=== PATIENT | female | born 1955 | race Caucasian/White ===

== ENCOUNTER 2016-08-19 13:40 | Inpatient (IN) ==
[2016-08-19 17:35] LABS: Basophils # 0.1 K/mcL (0.0-0.2); Basophils % 0.7 %; Eosinophils # 0.1 K/mcL (0.0-0.6); Eosinophils % 1.3 %; Hematocrit 40.9 % (35.3-44.9); Hemoglobin 13.8 g/dL (11.5-15.4); Immature Granulocytes % 0.3 % (0-4); Lymphocytes # 2.7 K/mcL (0.6-4.6); Lymphocytes % 35.3 %; Mean Corpuscular HGB Conc 33.7 g/dL (31.6-35.5); Mean Corpuscular Hemoglobin 29.3 pg (28.0-33.3); Mean Corpuscular Volume 86.8 fL (83.0-100.0); Mean Platelet Volume 10.3 fL (9.4-12.4); Monocytes # 0.5 K/mcL (0.0-1.3); Monocytes % 6.5 %; Neutrophils # 4.2 K/mcL (1.6-8.9); Platelet Count 270 K/mcL (140-400); Red Blood Count 4.71 M/mcL (3.82-4.97); Red Cell Distribution Width 11.7 % (11.5-14.5); Segmented Neutrophils % 55.9 %
[2016-08-19 17:49] LABS: Alanine Aminotransferase 25 Units/L (0-55); Albumin 3.8 g/dL (3.5-5.0); Alkaline Phosphatase 79 Units/L (38-126); Amylase 72 Units/L (25-125); Aspartate Amino Transferase 19 Units/L (5-34); BUN/Creatinine Ratio 18 (6-26); Bilirubin,Direct 0.1 mg/dL (0.0-0.5); Bilirubin,Indirect 0.3 mg/dL (0.0-1.2); Bilirubin,Total 0.4 mg/dL (0.2-1.2); Blood Urea Nitrogen 19 mg/dL (7-20); Calcium 9.9 mg/dL (8.6-10.8); Carbon Dioxide 30 mEq/L (19-29); Chloride 106 mEq/L (98-109); Globulin 3.7 g/dL (2.4-3.5); Glucose 122 mg/dL (70-99); Lipase 92 Units/L (8-78); Osmolality,Calculated 296 (280-300); Potassium 4.8 mEq/L (3.5-4.5); Sodium 141 mEq/L (136-145); Total Protein 7.5 g/dL (6.0-8.3); eGFR For African Americans > 60 (> 60); eGFR For Non-African Americans 53 (> 60)
[2016-08-19 18:02] LABS: Bilirubin,Urine Small (Negative); Blood,Urine Negative (Negative); Clarity,Urine Clear (Clear); Color,Urine Yellow (Yellow); Glucose,Urine (UA) Normal (Normal); Ketones,Urine Negative (Negative); Leukocyte Esterase,Urine Negative (Negative); Nitrite,Urine Negative (Negative); PH,Urine 5.5 pH Units (5.0-8.0); Protein,Urine Negative (Neg-Trace); Specific Gravity,Urine 1.027 (1.010-1.025); Urobilinogen,Urine Normal (Normal)
--- NOTE | 2016-08-19 18:22 | Emergency Department Note ---
START Narrative - START START: I examined this patient and my medical decision-making was reviewed with the METALWORKING INSTRUCTOR/PA/Advanced Practice Nurse/Resident Physician. I agree with the documented findings, disposition and treatment plan as described except to the extent set forth below. ED attending note: I saw this Patient with the emergency medicine resident Dr. Penny. Please see a copy of his note for details of the H&P, evaluation, management and disposition of this emergency Department patient. We independently had [id number] contact with the patient. Briefly: 61-year-old female with epigastric right upper quadrant pain going through to her back. History of chronic pain syndrome on a fentanyl patch from prior trauma she has plates and screws in her neck. Patient has multiple quadrant tenderness with voluntary guarding but no rebound. Lab work shows a normal white count and chemistry, lipase is elevated at 95. Abdominal pelvic CT scan pending. Disposition pending
[2016-08-19] MEDS ORDERED: Ondansetron 4 MG/2 ML VIAL IVP ONE ×2 (18:23→20:51)
--- NOTE | 2016-08-19 18:55 | Emergency Department Note ---
Disposition Clinical Impression: Intractable right upper quadrant abdominal pain Acute pancreatitis Qualifiers: Pancreatitis type: unspecified pancreatitis type Acute pancreatitis complication: unspecified Qualified Code(s): K85.90 - Acute pancreatitis without necrosis or infection, unspecified Disposition: Admitted As Inpatient Condition: Fair Referrals: Traci Daniels MD [Primary Care Provider] - Forms: Work/School Release, ED Satisfaction Letter Time of Disposition: 21:19 Abdominal Pain HPI - General Chief Complaint: ED Abdominal Pain Stated Complaint: abd pain Time Seen by Provider: 08/19/16 17:21 Source: patient Mode of arrival: ambulatory Limitations: no limitations Nursing Notes Reviewed: Yes Vital Signs Reviewed: Yes - History of Present Illness HPI Narrative: Patient is a 61-year-old female presents with abdominal pain 1 day in the right upper quadrant that woke her out of sleep at 7:30 AM 1 day ago sharp constant nonradiating nothing makes it better and nothing makes it worse. Patient states pain has decreased to 6/10 but has not gone away. Patient complains of loose mucousy red stools that started 3 days ago. Patient states this never happened before. Patient does not have a history of cancer. Patient has a family history of breast cancer and other cancers. Pain Scale: 7 - Related Data Home Medications Medication Instructions Recorded Confirmed Acyclovir [Zovirax] 400 mg PO BID 05/16/16 05/16/16 Atorvastatin Calcium [Lipitor] 20 mg PO DAILY 05/16/16 05/16/16 BuPROPion XL (24 HR) [Wellbutrin 150 mg PO DAILY 05/16/16 05/16/16 Xl] Buspirone HCl [Buspar] 20 mg PO BID 05/16/16 05/16/16 Cholecalciferol (D-3) [Vitamin D] 2,000 unit PO DAILY 05/16/16 05/16/16 Escitalopram [Lexapro] 20 mg PO DAILY 05/16/16 05/16/16 Fentanyl [Duragesic] 25 mcg TD Q72H 05/16/16 05/16/16 Glimepiride [Amaryl] 1 mg PO QAM PRN 05/16/16 05/16/16 Levothyroxine [Synthroid] 50 mcg PO DAILY 05/16/16 05/16/16 Metformin [Glucophage] 500 mg PO BID 05/16/16 05/16/16 Metoprolol XL (24 HR) Succ [Toprol 25 mg PO DAILY 05/16/16 05/16/16 Xl] Mometasone/Formoterol [Dulera 200 2 puff IH BID 05/16/16 05/16/16 Mcg/5 Mcg Inhaler] Montelukast [Singulair] 10 mg PO DAILY 05/16/16 05/16/16 Morphine Immed Rel [Morphine 15 mg PO BID 05/16/16 05/16/16 Sulfate] Pantoprazole Sodium [Protonix] 40 mg PO DAILY 05/16/16 05/16/16 Aspirin/Calcium Carbonate/Mag 325 mg PO DAILY 08/19/16 08/19/16 [Aspirin Buffered 325 mg Tab] Allergies Allergy/AdvReac Type Severity Reaction Status Date / Time hydrocodone [From Lortab] Allergy Rash Verified 05/16/16 10:47 Oxycodone [From Percocet] Allergy Chest Pain Verified 05/16/16 10:47 povidone-iodine Allergy Rash Verified 05/16/16 10:47 [From Betadine] soap [From Betadine] Allergy Rash Verified 05/16/16 10:47 ivp dye Allergy Hives Uncoded 05/16/16 10:47 All systems ED: reviewed and negative except as stated. Constitutional: Denies: fever, chills Eyes: Denies: eye pain, eye discharge ENT ED: Denies: ear pain, throat pain, congestion Cardiovascular: Denies: chest pain, palpitations Respiratory: Denies: cough Gastrointestinal: Reports: abdominal pain, nausea, diarrhea. Denies: vomiting Genitourinary: Denies: urgency, dysuria Musculoskeletal: Reports: back pain Psychiatric: Denies: anxiety Endocrine: Denies: fatigue Abdominal Pain PMH - Past Medical History Medical history: Reports: arthritis, asthma, diabetes, fibromyalgia, GERD, hyperlipidemia, thyroid disease, other Female Surgical History: Reports: appendectomy, hysterectomy, orthopedic, other , other Psychiatric history: Reports: anxiety, depression - Social History Smoking status: Never smoker Alcohol use: Reports: none Drug use: Reports: none Physical Exam - General Limitations: no limitations General appearance: alert - Head Head exam: atraumatic, normocephalic, normal inspection - Eye Eye exam: Present: normal appearance, PERRL, EOMI - ENT ENT exam: normal exam, mucous membranes moist - Neck Neck exam: Present: normal inspection, full ROM, trachea midline. Absent: lymphadenopathy - Chest Chest inspection: Present: normal inspection, symmetric chest wall rise. Absent : tenderness - Respiratory Respiratory exam: Present: normal lung sounds bilaterally, respiratory distress. Absent: wheezes, accessory muscle use - Cardiovascular Cardiovascular exam: Present: regular rate, normal rhythm - Abdominal Exam Abdominal exam: Present: soft, tenderness, normal bowel sounds. Absent: distention, guarding, rebound, rigidity Abdominal tenderness: Present: RUQ, moderate - Extremities Exam Extremities exam: Present: normal inspection, full ROM, normal capillary refill. Absent: tenderness, pedal edema, joint swelling Course - Reevaluation(s) Reevaluation #1: Patient is 61-year-old female who presents with sudden onset of abdominal pain 1 day 9 out of 10 with reduction to 6 out of 10 without assistance. Patient has right upper quadrant tender mass is felt on palpation. Recommend CT abdomen and pelvis noncontrast secondary to allergic reaction to previous contrasted heart catheterization. Patient started IV hydration therapy and pain control for possible acute cholecystitis, choledocholithiasis SBO, pancreatitis, neoplasm, volvulus Time: 18:13 Reevaluation #2: Rechecked patient, patient states that her nausea is controlled but her pain is currently a 5 out of 10. A[address] results Time: 19:04 Reevaluation #3: CT scan shows a mild focal pancreatitis. I discussed admission to with the patient for IV hydration and Pain control. Patient accepts and understands this treatment and plan Time: 20:15 - Consultations Consultation #1: Dr. Slater accepted patient for admission Time: 21:16 Vital Signs Temperature 98.3 F 08/19/16 14:29 Pulse Rate 72 08/19/16 14:29 Respiratory Rate 22 08/19/16 14:29 Blood Pressure 102/64 08/19/16 14:29 O2 Sat by Pulse Oximetry 96 08/19/16 14:29 Temperature 98.3 F 08/19/16 14:29 Pulse Rate 80 08/19/16 18:28 Respiratory Rate 16 08/19/16 17:32 Blood Pressure 132/88 08/19/16 18:28 O2 Sat by Pulse Oximetry 94 L 08/19/16 18:28 Oxygen Delivery Oxygen Delivery Room Air Abdominal Pain - MDM Narrative Medical decision making narrative: Patient is a 61-year-old female who presents with right upper quadrant pain one day that woke her from sleep. Patient has right upper quadrant tenderness and mass felt on examination. Patient's condition is worrisome for acute cholecystitis, choledocholithiasis, pancreatitis, abdominal neoplasm. She shows a hyperkalemia 4.8, elevated lipase at 92 for pancreatitis. Patient has a CT scan of abdomen and pelvis which shows: IMPRESSION: Per radiology Mild infiltration which could represent mild focal pancreatitis adjacent to the uncinate process interposed adjacent to the transverse duodenum. Moderate fatty infiltration of the liver. Patient was admitted hospital for inpatient therapy for IV hydration and pain control Acute mild focal Pancreatitis. Patient was accepted by Dr. Slater - Lab Data Lab results reviewed: Yes I reviewed the patient's lab results. Lab results narrative: Short CBC 08/19/16 Range/Units 17:22 WBC 7.6 (4.3-11.1) K/mcL Hgb 13.8 (11.5-15.4) g/dL Hct 40.9 (35.3-44.9) % Plt Count 270 (140-400) K/mcL Neutrophils # 4.2 (1.6-8.9) K/mcL BMP 08/19/16 Range/Units 17:22 Sodium 141 (136-145) mEq/L Potassium 4.8 H (3.5-4.5) mEq/L Chloride 106 (98-109) mEq/L Carbon Dioxide 30 H (19-29) mEq/L BUN 19 (7-20) mg/dL Creatinine 1.06 (0.57-1.11) mg/dL Glucose 122 H (70-99) mg/dL Calcium 9.9 (8.6-10.8) mg/dL Liver Function 08/19/16 Range/Units 17:22 Total Bilirubin 0.4 (0.2-1.2) mg/dL Direct Bilirubin 0.1 (0.0-0.5) mg/dL AST 19 (5-34) Units/L ALT 25 (0-55) Units/L Alkaline Phosphatase 79 (38-126) Units/L Albumin 3.8 (3.5-5.0) g/dL Urine 08/19/16 Range/Units 17:45 Urine Color Yellow (Yellow) Urine Clarity Clear (Clear) Urine pH 5.5 (5.0-8.0) pH Units Ur Specific [place] 1.027 H (1.010-1.025) Urine Protein Negative (Neg-Trace) mg/dL Urine Glucose (UA) Normal (Normal) mg/dL Result diagrams: 08/19/16 17:22 08/19/16 17:22 Lab Results 08/19/16 08/19/16 08/19/16 Range/Units 17:22 17:22 17:45 WBC 7.6 (4.3-11.1) K/mcL RBC 4.71 (3.82-4.97) M/mcL Hgb 13.8 (11.5-15.4) g/dL Hct 40.9 (35.3-44.9) % MCV 86.8 (83.0-100.0) fL MCH 29.3 (28.0-33.3) pg MCHC 33.7 (31.6-35.5) g/dL RDW 11.7 (11.5-14.5) % Plt Count 270 (140-400) K/mcL MPV 10.3 (9.4-12.4) fL Immature Gran % 0.3 (0-4) % Seg Neutrophils % 55.9 % Lymphocytes % 35.3 % Monocytes % 6.5 % Eosinophils % 1.3 % Basophils % 0.7 % Neutrophils # 4.2 (1.6-8.9) K/mcL Lymphocytes # 2.7 (0.6-4.6) K/mcL Monocytes # 0.5 (0.0-1.3) K/mcL Eosinophils # 0.1 (0.0-0.6) K/mcL Basophils # 0.1 (0.0-0.2) K/mcL Sodium 141 (136-145) mEq/L Potassium 4.8 H (3.5-4.5) mEq/L Chloride 106 (98-109) mEq/L Carbon Dioxide 30 H (19-29) mEq/L BUN 19 (7-20) mg/dL Creatinine 1.06 (0.57-1.11) mg/dL Est GFR ( Amer) > 60 (> 60) Est GFR (Non-Af Amer) 53 L (> 60) BUN/Creatinine Ratio 18 (6-26) Glucose 122 H (70-99) mg/dL Calculated Osmolality 296 (280-300) Calcium 9.9 (8.6-10.8) mg/dL Total Bilirubin 0.4 (0.2-1.2) mg/dL Direct Bilirubin 0.1 (0.0-0.5) mg/dL Indirect Bilirubin 0.3 (0.0-1.2) mg/dL AST 19 (5-34) Units/L ALT 25 (0-55) Units/L Alkaline Phosphatase 79 (38-126) Units/L Serum Total Protein 7.5 (6.0-8.3) g/dL Albumin 3.8 (3.5-5.0) g/dL Globulin 3.7 H (2.4-3.5) g/dL Albumin/Globulin Ratio 1.0 L (1.1-2.2) Amylase 72 (25-125) Units/L Lipase 92 H (8-78) Units/L Urine Color Yellow (Yellow) Urine Clarity Clear (Clear) Urine pH 5.5 (5.0-8.0) pH Units Ur Specific [place] 1.027 H (1.010-1.025) Urine Protein Negative (Neg-Trace) mg/dL Urine Glucose (UA) Normal (Normal) mg/dL Urine Ketones Negative (Negative) mg/dL Urine Blood Negative (Negative) Urine Nitrite Negative (Negative) Urine Bilirubin Small H (Negative) Urine Urobilinogen Normal (Normal) mg/dL Ur Leukocyte Esterase Negative (Negative) Ur Culture Indicated? NO (NO) - Radiology Data Radiology results reviewed: Yes I reviewed the patient's radiology results. Abdomen/Pelvis CT 08/19/16 18:19 IMPRESSION: Mild infiltration which could represent mild focal pancreatitis adjacent to the uncinate process interposed adjacent to the transverse duodenum. Moderate fatty infiltration of the liver. D/ / John Charles MD / John Charles MD Interpreting Provider: John Charles MD
[2016-08-19] MEDS ORDERED: 0.9 % Sodium Chloride 1,000 ML IVC ONE (19:04)
[2016-08-20] MEDS: *HR* Morphine 2 MG/ML SYRINGE IVP PRN ×5 (02:50→20:03)
[2016-08-20] MEDS: 0.9 % Sodium Chloride 1,000 ML IVC SCH ×4 (02:50→20:49)
[2016-08-20] MEDS ORDERED: Naloxone 0.4 MG/ML INJ IVP PRN (05:01)
[2016-08-20] MEDS ORDERED: Dextrose Gel 15 GM PO PRN ×2 (05:09)
[2016-08-20] MEDS ORDERED: D5% in Water 1,000 ML IV PRN (05:09)
[2016-08-20] MEDS ORDERED: *HR* Dextrose 50 % in Water (Syg) 50 ML SYRINGE IVP PRN (05:09)
[2016-08-20] MEDS: Insulin LISPRO 300 UNITS/3 ML VIAL SQ SCH ×3 (05:37→17:50)
[2016-08-20] MEDS: Pantoprazole 40 MG VIAL IVP SCH ×2 (05:55→07:56)
[2016-08-20] MEDS: *HR* Heparin 5,000 UNIT/ML VIAL SQ SCH ×3 (05:55→23:06)
[2016-08-20] MEDS: Ondansetron 4 MG/2 ML VIAL IVP PRN ×2 (05:56→15:53)
[2016-08-20] MEDS: *HR* FentaNYL PATCH 25 MCG PATCH TD SCH (05:56)
--- NOTE | 2016-08-20 06:00 | Internal Med History&Physical ---
Date of Encounter: 08/20/16 Time of Encounter: 05:30 Assessment and Plan (1) Acute pancreatitis Current visit: Yes Status: Acute 1. Will keep npo, continue IVF, IV pain medicine, and IV anti-emetics. 2. Will trend amylase and lipase. 3. Will order GB Ultrasound to evaluate for gallstone pancreatitis. 4. Diet order subject to clinical improvement and resolution of pancreatitis. Qualifiers: Pancreatitis type: biliary Acute pancreatitis complication: no infection or necrosis Qualified Code(s): K85.10 - Biliary acute pancreatitis without necrosis or infection (2) Hypothyroidism Current visit: Yes Status: Chronic 1. Resume home dose of Synthroid. 2. Outpatient follow up. Qualifiers: Hypothyroidism type: acquired Qualified Code(s): E03.9 - Hypothyroidism, unspecified (3) Type 2 diabetes mellitus Current visit: No Status: Chronic 1. Hold oral meds. 2. Will place on low scale SSI. 3. Monitor glucose and adjust insulin as necessary. Qualifiers: Diabetes mellitus complication status: without complication Diabetes mellitus regional intermodal truck driver insulin use: without regional intermodal truck driver use Qualified Code(s): E11.9 - Type 2 diabetes mellitus without complications (4) DVT prophylaxis Current visit: Yes Status: Acute 1. Heparin SQ. Internal Medicine - H&P: HPI Chief complaint: abdomninal pain Admitted From: Emergency Dept Plans for Post Hospital Care: Home History of present illness: Ms. Myrick is a 61 year old female who presented to the ER tonight with complaints of sharp epigastric and right upper quadrant abdominal pain radiating to her mid back and right scapula. Symptoms started about 24-48 hours ago. She developed pain was associated with nausea, vomiting, and some diarrhea. She has had no fevers. She has been unable to eat or drink due to pain and vomiting exacerbation. She has never had pain like this before. She has had some gallbladder problems in the past, but she denies any acute pain and /or symptoms such as above. Work-up in the ER revealed patient to have evidence of pancreatitis, and she was admitted to hospitalist service. Upon my assessment of the patient, she reiterates the above history. She still has some pain and nausea, but is better controlled with pain medication we administered. She does not drink any alcohol. She is diabetic and has high cholesterol. Furthermore, there is a strong family history of gallbladder disease. Past Med Surg Social Fam HX - Past Medical History Attestation: Yes The following information was validated with the patient. Source: patient, old records reviewed Medical history: arthritis, asthma, CVA, diabetes, fibromyalgia, GERD, hyperlipidemia, thyroid disease, TIA Psychiatric history: anxiety, depression - Past Surgical History Surgical History: appendectomy, hysterectomy - Social History Smoking Status: Never smoker Smokeless Tobacco Status: No Alcohol use: none Drug use: none Current living situation: Home Activity Level: Independent ambulation Recent Out of Country Travel Within the Last 8 Weeks: No - Family History Mother History Unknown: Yes Adopted: [place]: Catie Cole Age: 83 Family Member Ethnicity: Non- Living Status: Still Living Hx Family Cardiac Disorders: Yes (CHF, Takotsubo disease) Hx Family Respiratory Disorders: Yes (COPD, Asthma) Hx Family Cancer: Yes (Skin) Hx Family GI Disorders: Yes (GERD) Hx Family Genitourinary Disorders: Yes (Urinary incontinence) Hx Family Endocrine Disorder: No Hx Family Musculoskeletal Disorders: Yes (Osteo arthritis) Hx Family Neuromuscular Disorders: No Hx Family Neurologic Disorders: Yes (TIA) Hx Family HEENT Disorders: No Hx Family Autoimmune Disorders: No Hx Family Reproductive Disorders: No Hx Family Psychosocial Disorders: No Hx Family Medical Disorders: No Father History Unknown: Yes Adopted: [place]: Niall Sena Family Member Ethnicity: Non- Living Status: Age at : 70 Cause of : Metastatic cancer Hx Family Cardiac Disorders: No Hx Family Respiratory Disorders: No Hx Family Cancer: Yes Internal Medicine - H&P: Meds Acyclovir [Zovirax] 400 mg PO BID 05/16/16 [History] Atorvastatin Calcium [Lipitor] 20 mg PO DAILY 05/16/16 [History] BuPROPion XL (24 HR) [Wellbutrin Xl] 150 mg PO DAILY 05/16/16 [History] Buspirone HCl [Buspar] 20 mg PO BID 05/16/16 [History] Cholecalciferol (D-3) [Vitamin D] 2,000 unit PO DAILY 05/16/16 [History] Escitalopram [Lexapro] 20 mg PO DAILY 05/16/16 [History] Fentanyl [Duragesic] 25 mcg TD Q72H 05/16/16 [History] Glimepiride [Amaryl] 1 mg PO QAM PRN 05/16/16 [History] Levothyroxine [Synthroid] 50 mcg PO DAILY 05/16/16 [History] Metformin [Glucophage] 500 mg PO BID 05/16/16 [History] Metoprolol XL (24 HR) Succ [Toprol Xl] 25 mg PO DAILY 05/16/16 [History] Mometasone/Formoterol [Dulera 200 Mcg/5 Mcg Inhaler] 2 puff IH BID 05/16/16 [ History] Montelukast [Singulair] 10 mg PO DAILY 05/16/16 [History] Morphine Immed Rel [Morphine Sulfate] 15 mg PO BID PRN 05/16/16 [History] Pantoprazole Sodium [Protonix] 40 mg PO DAILY 05/16/16 [History] Aspirin/Calcium Carbonate/Mag [Aspirin Buffered 325 mg Tab] 325 mg PO DAILY [History] Allergies hydrocodone [From Lortab] Allergy (Verified 05/16/16 10:47) Rash Oxycodone [From Percocet] Allergy (Verified 05/16/16 10:47) Chest Pain povidone-iodine [From Betadine] Allergy (Verified 05/16/16 10:47) Rash soap [From Betadine] Allergy (Verified 05/16/16 10:47) Rash ivp dye Allergy (Uncoded 05/16/16 10:47) Hives - Constitutional Constitutional: no chills, no fever(s) - EENT Eyes: no blurry vision, no change in vision Ears: no ear pain Nose, mouth and throat: no nasal congestion, no sinus pain, no sinus pressure, no sore throat - Cardiovascular Cardiovascular ROS IM: no chest pain, no diaphoresis, no dyspnea, no dyspnea on exertion, no palpitations - Respiratory Respiratory: no cough, no dyspnea, no hemoptysis, no excessive phlegm production , no change in phlegm color - Gastrointestinal Gastrointestinal: abdominal pain, belching, diarrhea, dyspepsia, loose stools, nausea, vomiting, no heartburn, no hematemesis, no hematochezia - Genitourinary Genitourinary: no dysuria, no flank pain, no hematuria - Musculoskeletal Musculoskeletal ROS IM: back pain (chronic), no arthralgias - Integumentary Integumentary IM: no rash, no jaundice - Neurological Neurological ROS: no dizziness, no focal weakness, no frequent falls, no headache(s) - Psychiatric Psychiatric: anxiety, depression, no homicidal ideation, no suicidal ideation - Endocrine Endocrine IM: no cold intolerance, no heat intolerance, no polydipsia, no polyuria - Hematologic/Lymphatic Hematologic/Lymphatic: no lymphadenopathy - Allergic/Immunologic Allergic/Immunologic: GI upset with certain foods, no wheezing - Constitutional Vitals: Temp Pulse Resp BP Pulse Ox 98.0 F 62 12 107/64 96 08/20/16 03:26 08/20/16 03:26 08/20/16 03:26 08/20/16 03:08/20/16 03:26 General appearance: Present: cooperative, mild distress, A&O X 3, pleasant, answers questions appropriately - Head Head exam: Present: atraumatic, normal inspection - Expanded Head Exam Head exam expanded: Absent: abrasion, general tenderness - Eye Eye exam: Present: EOMI, normal appearance, PERRL. Absent: scleral icterus Pupils: Present: normal accommodation - ENT ENT exam: Present: mucous membranes dry, normal exam, normal oropharynx - Neck Neck exam general surgery: Present: full ROM, supple, trachea midline. Absent: tenderness, thyromegaly - Respiratory Respiratory exam: Present: CTAB. Absent: chest wall tenderness, rales, rhonchi , wheezes - Cardiovascular Cardiovascular exam: Present: RRR, +S1, +S2. Absent: diastolic murmur, systolic murmur - GI/Abdominal GI/Abdominal exam: Present: guarding, hypoactive bowel sounds, soft, tenderness (epigastric-->RUQ-->midback), no peritoneal signs. Absent: hepatomegaly, mass, rebound, splenomegaly - Extremities Exam Extremities exam: Present: full ROM, warm, radial pulses palpable and symetrical. Absent: calf tenderness, joint swelling - Back Exam Back exam: Present: normal inspection. Absent: CVA tenderness (L), CVA tenderness (R) - Neurological Exam Neurological exam: Present: alert, CN II-XII intact, oriented X3, no focal deficits, strengths equal and symetr throughout - Psychiatric Psychiatric exam: Present: normal affect, normal mood - Skin Skin exam: Present: dry, warm. Absent: rash Internal Med - H&P Results - Labs CBC & Chem 7: 08/19/16 17:22 08/19/16 17:22 - Diagnostic Studies CT scan - abdomen Additional comments: CT report reviewed: findings consistent with pancreatitis
[2016-08-20 06:42] LABS: Basophils % 0.6 %; Eosinophils # 0.2 K/mcL (0.0-0.6); Eosinophils % 2.2 %; Hematocrit 35.8 % (35.3-44.9); Immature Granulocytes % 0.4 % (0-4); Lymphocytes # 2.7 K/mcL (0.6-4.6); Lymphocytes % 39.6 %; Mean Corpuscular HGB Conc 32.7 g/dL (31.6-35.5); Mean Corpuscular Hemoglobin 28.7 pg (28.0-33.3); Mean Corpuscular Volume 87.7 fL (83.0-100.0); Mean Platelet Volume 10.8 fL (9.4-12.4); Monocytes # 0.6 K/mcL (0.0-1.3); Monocytes % 8.3 %; Neutrophils # 3.4 K/mcL (1.6-8.9); Platelet Count 238 K/mcL (140-400); Red Blood Count 4.08 M/mcL (3.82-4.97); Red Cell Distribution Width 11.7 % (11.5-14.5); Segmented Neutrophils % 48.9 %
[2016-08-20 06:48] LABS: Hemoglobin 11.7 g/dL (11.5-15.4)
[2016-08-20 06:50] LABS: INR 1.2; Prothrombin Time 12.5 Seconds (9.4-12.1)
[2016-08-20 06:53] LABS: Activated Partial Thrombo Time 28.9 Seconds (26.0-36.0)
[2016-08-20 06:58] LABS: Alanine Aminotransferase 20 Units/L (0-55); Albumin 3.3 g/dL (3.5-5.0); Albumin/Globulin Ratio 1.1 (1.1-2.2); Alkaline Phosphatase 67 Units/L (38-126); Amylase 45 Units/L (25-125); Aspartate Amino Transferase 18 Units/L (5-34); BUN/Creatinine Ratio 16 (6-26); Bilirubin,Total 0.4 mg/dL (0.2-1.2); Blood Urea Nitrogen 16 mg/dL (7-20); Calcium 8.9 mg/dL (8.6-10.8); Carbon Dioxide 25 mEq/L (19-29); Chloride 106 mEq/L (98-109); Chol/HDL Ratio 4.9 (0-4.9); Cholesterol 227 mg/dL (< 200); Globulin 2.9 g/dL (2.4-3.5); Glucose 113 mg/dL (70-99); HDL Cholesterol 46 mg/dL (40-59); LDL Cholesterol,Calculated 139 mg/dL (0-99); Lipase 44 Units/L (8-78); Magnesium 1.7 mg/dL (1.6-2.6); Osmolality,Calculated 292 (280-300); Potassium 3.9 mEq/L (3.5-4.5); Sodium 140 mEq/L (136-145); Total Protein 6.2 g/dL (6.0-8.3); Triglycerides 209 mg/dL (< 150); eGFR For African Americans > 60 (> 60); eGFR For Non-African Americans 58 (> 60)
[2016-08-20 06:59] LABS: Hemoglobin A1C 6.6 %
--- NOTE | 2016-08-20 09:51 | Internal Med Progress Note ---
Date of Encounter: 08/20/16 Time of Encounter: 09:48 - Assessment and plan (1) Type 2 diabetes mellitus Current Visit: No Status: Chronic Assessment and plan: #1. She will be nothing by mouth for now with IV fluids #2 we will do every 6 hours Accu-Cheks. We will cover with a very small dose of sliding scale insulin. Qualifiers: Diabetes mellitus complication status: without complication Diabetes mellitus penitentiary insulin use: without termite control service representative use Qualified Code(s): E11.9 - Type 2 diabetes mellitus without complications (2) Acute pancreatitis Current Visit: Yes Status: Acute Assessment and plan: #1 need to get gallbladder ultrasound done. Her pancreatitis looks like it has cleared fairly quickly. She has some findings consistent had a CT scan but her lipase is back down to 42 already. #2 if gallbladder ultrasound is negative for any stones likely tried her on clear liquids later today and advance her diet to regular in the morning and then home if pain is settled down 3. If gallbladder ultrasound shows gallstones will need to consider surgical consult prior to advancing any diet etc. Qualifiers: Pancreatitis type: biliary Acute pancreatitis complication: no infection or necrosis Qualified Code(s): K85.10 - Biliary acute pancreatitis without necrosis or infection - Subjective Interval history: She is finally getting some sleep. She was nearly up all night. Pain seemed to settle down some. Early a.m. lipase is down to 44 which is normal. Awaiting gallbladder ultrasound - Constitutional Vitals: Temp Pulse Resp BP Pulse Ox 98.0 F 73 16 113/69 93 L 08/20/16 07:13 08/20/16 07:13 08/20/16 07:13 08/20/16 07:13 08/20/16 07:13 General appearance: Present: cooperative, mild distress, A&O X 3, pleasant, answers questions appropriately - GI/Abdominal GI/Abdominal exam: Present: hypoactive bowel sounds, tenderness (Mild right upper quadrant tenderness at this current time frame). Absent: hepatomegaly, mass, splenomegaly Internal Medicine: Result - Labs CBC & Chem 7: 08/20/16 05:28 08/20/16 05:28 Labs: Short CBC 08/20/16 Range/Units 05:28 WBC 6.9 (4.3-11.1) K/mcL Hgb 11.7 D (11.5-15.4) g/dL Hct 35.8 (35.3-44.9) % Plt Count 238 (140-400) K/mcL Neutrophils # 3.4 (1.6-8.9) K/mcL BMP 08/20/16 05:28 Sodium 140 Potassium 3.9 Chloride 106 Carbon Dioxide 25 BUN 16 Creatinine 0.98 Glucose 113 H Calcium 8.9 Liver Function 08/20/16 Range/Units 05:28 Total Bilirubin 0.4 (0.2-1.2) mg/dL AST 18 (5-34) Units/L ALT 20 (0-55) Units/L Alkaline Phosphatase 67 (38-126) Units/L Albumin 3.3 L (3.5-5.0) g/dL - ABG Interpretation ABG results: PT/INR, D-dimer PT 12.5 Seconds (9.4-12.1) H 08/20/16 05:28 Consult Discharge Plan - Plan Referrals: Traci Daniels MD [Primary Care Provider] -
[2016-08-20] MEDS: Metoprolol XL (24 HR) Succ 25 MG TAB.ER.24H PO SCH (10:59)
[2016-08-20] MEDS: (Mometasone/Formoterol [Dulera 200 Mcg/5 Mcg Inhaler] IH SCH (11:03)
[2016-08-21] MEDS: Insulin LISPRO 300 UNITS/3 ML VIAL SQ SCH ×4 (00:33→17:40)
[2016-08-21] MEDS: 0.9 % Sodium Chloride 1,000 ML IVC SCH ×3 (04:55→20:29)
[2016-08-21] MEDS: Ondansetron 4 MG/2 ML VIAL IVP PRN ×2 (05:04→12:41)
[2016-08-21] MEDS: *HR* Heparin 5,000 UNIT/ML VIAL SQ SCH ×3 (05:57→23:10)
[2016-08-21] MEDS: *HR* Morphine 2 MG/ML SYRINGE IVP PRN (05:57)
[2016-08-21] MEDS: (Mometasone/Formoterol [Dulera 200 Mcg/5 Mcg Inhaler] IH SCH ×3 (10:22→23:12)
[2016-08-21] MEDS: Pantoprazole 40 MG VIAL IVP SCH (10:28)
[2016-08-21] MEDS: Metoprolol XL (24 HR) Succ 25 MG TAB.ER.24H PO SCH (10:28)
[2016-08-21] MEDS ORDERED: traMADol 50 MG TABLET PO PRN (10:36)
[2016-08-21 14:01] LABS: Basophils % 0.6 %; Eosinophils # 0.1 K/mcL (0.0-0.6); Eosinophils % 2.5 %; Hematocrit 34.8 % (35.3-44.9); Hemoglobin 11.8 g/dL (11.5-15.4); Immature Granulocytes % 0.4 % (0-4); Lymphocytes % 41.8 %; Mean Corpuscular HGB Conc 33.9 g/dL (31.6-35.5); Mean Corpuscular Hemoglobin 29.6 pg (28.0-33.3); Mean Corpuscular Volume 87.2 fL (83.0-100.0); Mean Platelet Volume 10.5 fL (9.4-12.4); Monocytes # 0.4 K/mcL (0.0-1.3); Monocytes % 9.1 %; Neutrophils # 2.2 K/mcL (1.6-8.9); Platelet Count 210 K/mcL (140-400); Red Blood Count 3.99 M/mcL (3.82-4.97); Red Cell Distribution Width 11.6 % (11.5-14.5); Segmented Neutrophils % 45.6 %
[2016-08-21 14:10] LABS: Alanine Aminotransferase 21 Units/L (0-55); Albumin 3.2 g/dL (3.5-5.0); Albumin/Globulin Ratio 1.1 (1.1-2.2); Alkaline Phosphatase 65 Units/L (38-126); Amylase 44 Units/L (25-125); Aspartate Amino Transferase 21 Units/L (5-34); BUN/Creatinine Ratio 10 (6-26); Bilirubin,Total 0.5 mg/dL (0.2-1.2); Blood Urea Nitrogen 10 mg/dL (7-20); Calcium 8.9 mg/dL (8.6-10.8); Carbon Dioxide 27 mEq/L (19-29); Chloride 106 mEq/L (98-109); Globulin 2.9 g/dL (2.4-3.5); Glucose 97 mg/dL (70-99); Lipase 56 Units/L (8-78); Osmolality,Calculated 293 (280-300); Potassium 4.1 mEq/L (3.5-4.5); Sodium 142 mEq/L (136-145); Total Protein 6.1 g/dL (6.0-8.3); eGFR For African Americans > 60 (> 60); eGFR For Non-African Americans 54 (> 60)
[2016-08-21] MEDS ORDERED: GI Cocktail 40 ML EACH PO STA (17:20)
[2016-08-21] MEDS ORDERED: Pantoprazole 40 MG VIAL IVP STA (17:21)
[2016-08-21] MEDS: *HR* HYDROmorphone (PF) 1 MG/ML SYRINGE IVP PRN ×2 (18:16→22:25)
--- NOTE | 2016-08-21 18:20 | Internal Med Progress Note ---
Date of Encounter: 08/21/16 Time of Encounter: 18:18 - Assessment and plan (1) Type 2 diabetes mellitus Current Visit: No Status: Chronic Qualifiers: Diabetes mellitus complication status: without complication Diabetes mellitus halfway insulin use: without side panel hanger use Qualified Code(s): E11.9 - Type 2 diabetes mellitus without complications (2) Acute pancreatitis Current Visit: Yes Status: Resolved Qualifiers: Pancreatitis type: biliary Acute pancreatitis complication: no infection or necrosis Qualified Code(s): K85.10 - Biliary acute pancreatitis without necrosis or infection (3) RUQ abdominal pain Current Visit: Yes Status: Acute Assessment and plan: #1 to try a GI cocktail C that will help. #2 increased her dose of Protonix to twice daily and give her an IV dose tonight 3 change her IV pain medication number for observe again until tomorrow. She is not taking by mouth intake very well and I like to get her eating before we get her sent home. - Subjective Interval history: She she is complaining of right upper quadrant and midepigastric abdominal discomfort. It is a sharp/burning pain. There is no worsening or alleviating factors. She has not felt hungry and has not eaten so he cannot say has been worsened by food. Lipase returned to normal. Ultrasound showed gallbladder sludge but no findings of any acute cholecystic changes - Constitutional Vitals: Temp Pulse Resp BP Pulse Ox 98.1 F 62 15 105/72 96 08/21/16 14:18 08/21/16 14:18 08/21/16 14:18 08/21/16 14:18 08/21/16 14:18 General appearance: Present: cooperative, A&O X 3, pleasant, answers questions appropriately - GI/Abdominal GI/Abdominal exam: Present: hypoactive bowel sounds, tenderness (Right upper quadrant), no peritoneal signs. Absent: distended, firm, guarding, mass Internal Medicine: Result - Labs CBC & Chem 7: 08/21/16 13:23 08/21/16 13:23 Labs: Short CBC 08/21/16 Range/Units 13:23 WBC 4.9 (4.3-11.1) K/mcL Hgb 11.8 (11.5-15.4) g/dL Hct 34.8 L (35.3-44.9) % Plt Count 210 (140-400) K/mcL Neutrophils # 2.2 (1.6-8.9) K/mcL BMP 08/21/16 13:23 Sodium 142 Potassium 4.1 Chloride 106 Carbon Dioxide 27 BUN 10 Creatinine 1.03 Glucose 97 Calcium 8.9 Liver Function 08/21/16 Range/Units 13:23 Total Bilirubin 0.5 (0.2-1.2) mg/dL AST 21 (5-34) Units/L ALT 21 (0-55) Units/L Alkaline Phosphatase 65 (38-126) Units/L Albumin 3.2 L (3.5-5.0) g/dL - ABG Interpretation ABG results: PT/INR, D-dimer PT 12.5 Seconds (9.4-12.1) H 08/20/16 05:28 Consult Discharge Plan - Plan Referrals: Traci Daniels MD [Primary Care Provider] -
[2016-08-22] MEDS: Insulin LISPRO 300 UNITS/3 ML VIAL SQ SCH ×4 (00:02→17:43)
[2016-08-22] MEDS: *HR* HYDROmorphone (PF) 1 MG/ML SYRINGE IVP PRN ×5 (03:24→23:57)
[2016-08-22] MEDS: 0.9 % Sodium Chloride 1,000 ML IVC SCH ×4 (04:40→18:54)
[2016-08-22] MEDS: *HR* Heparin 5,000 UNIT/ML VIAL SQ SCH ×3 (05:29→21:07)
[2016-08-22] MEDS: Pantoprazole 40 MG VIAL IVP SCH (07:38)
[2016-08-22] MEDS: Metoprolol XL (24 HR) Succ 25 MG TAB.ER.24H PO SCH (07:40)
[2016-08-22] MEDS: (Mometasone/Formoterol [Dulera 200 Mcg/5 Mcg Inhaler] IH SCH ×2 (07:41→21:07)
[2016-08-22] MEDS: Ondansetron 4 MG/2 ML VIAL IVP PRN ×2 (13:20→21:03)
[2016-08-22] MEDS: *HR* Morphine 2 MG/ML SYRINGE IVP PRN ×2 (13:20→21:03)
--- NOTE | 2016-08-22 15:14 | Internal Med Progress Note ---
Date of Encounter: 08/22/16 (n) Time of Encounter: 15:06 - Assessment and plan (1) Type 2 diabetes mellitus Current Visit: No Status: Chronic Qualifiers: Diabetes mellitus complication status: without complication Diabetes mellitus buttermaker continuous churn insulin use: without penitentiary use Qualified Code(s): E11.9 - Type 2 diabetes mellitus without complications (2) Acute pancreatitis Current Visit: Yes Status: Resolved Qualifiers: Pancreatitis type: biliary Acute pancreatitis complication: no infection or necrosis Qualified Code(s): K85.10 - Biliary acute pancreatitis without necrosis or infection (3) RUQ abdominal pain Current Visit: Yes Status: Acute Assessment and plan: Still continues right upper quadrant pain. I will attempt to deal with the pain has been failing. We try to start a diet and she did not tolerated diet very well. Oral intake is been fairly poor. Consult was put into Dr. Efrain Pickard. I Would like to see what he thinks about the radiological findings whether or not there is some acute nature to the cholelithiasis seen. - Time Spent With Patient 25 - 35 minutes - Subjective Interval history: She she is complaining of right upper quadrant and midepigastric abdominal discomfort. It is a sharp/burning pain. There is no worsening or alleviating factors. She has not felt hungry and has not eaten so he cannot say has been worsened by food. Lipase returned to normal. Ultrasound showed gallbladder sludge but no findings of any acute cholecystic changes 1 I saw her yesterday all the above are still true. She still complains of abdominal pain and right upper quadrant pain. She is refusing eat because it "hurts "there has been no fever. I attempted to start an increased dose of Protonix and tried GI cocktail without any improvement either. Discussed with the patient. She is not going to eat and is a bit of concern. We will consult surgery to see if they think that the sludge in the gallbladder may be giving her enough symptomatology. Probably what her to have general surgery given a second opinion on radiologic findings and see if there is some acute changes present. - Constitutional Vitals: Temp Pulse Resp BP Pulse Ox 97.5 F L 57 16 112/69 95 08/22/16 12:11 08/22/16 12:11 08/22/16 12:11 08/22/16 12:11 08/22/16 12:11 General appearance: Present: cooperative, A&O X 3, pleasant, answers questions appropriately - GI/Abdominal GI/Abdominal exam: Present: normal bowel sounds, soft, tenderness (Right upper quadrant), no peritoneal signs. Absent: distended, rebound Internal Medicine: Result - Labs CBC & Chem 7: 08/21/16 13:23 08/21/16 13:23 - ABG Interpretation ABG results: PT/INR, D-dimer PT 12.5 Seconds (9.4-12.1) H 08/20/16 05:28 Consult Discharge Plan - Plan Referrals: Traci Daniels MD [Primary Care Provider] -
--- NOTE | 2016-08-22 15:22 | General Surgery Consult Note ---
<Camden Silverio - Last Filed: 08/22/16 16:33> Date of Encounter: 08/22/16 Time of Encounter: 15:21 Assessment and Plan (1) Pancreatitis Current Visit: Yes Status: Acute Pt. with initial elevation of lipase with radiographic evidence of pancreatitis RUQ and epigastric pain radiating to the back U/S revealed gallbladder sludge Pt. was NPO for 3 days with improvement of abdominal pain. Upon resumption of diet epigastric and RUQ pain returned with associated nausea. Pt. denies alcohol use and has triglycerides of 209 Dr. Pickard recommends removal of gallbladder to prevent further episodes of pancreatitis as this is the most likely underlying cause of her pancreatitis. NPO after midnight pain control anti-emetics IVF NS DVT and GI prophylaxis Qualifiers: Chronicity: acute Pancreatitis type: unspecified pancreatitis type Acute pancreatitis complication: unspecified Qualified Code(s): K85.90 - Acute pancreatitis without necrosis or infection, unspecified History of Present Illness Consult date: 08/22/16 Reason for consult: abdominal pain Requesting physician: Anatoliy Crespo History of present illness: Ms. Myrick is a 61 year old female who [facility] with sharp epigastric and right upper quadrant abdominal pain radiating to her mid back and right scapula. She developed pain was associated with nausea, vomiting, and some diarrhea. She has had some gallbladder problems in the past. Work-up in the ER revealed patient to have evidence of pancreatitis, and she was admitted to hospitalist service. She was treated for pancreatitis with NPO, IV fluid hydration. She had epigastric pain with radiation to the back. Her initial Lipase was 92. After bowel rest, her lipase normalized and her abdominal pain subsided. Upon advancing her diet she began to have severe epigastric pain with radiation to the back with associated nausea. A GI cocktail and increase in PPI therapy provided no relief. Her triglycerides are 209. She denies alcohol use. CT scan on admission revealed mild infiltration which could represent mild focal pnacreatitis. A gallbladder US revealed sludge within the gallbladder. Past Med Surg Social Fam HX - Past Medical History Medical history: arthritis, asthma, CVA, diabetes, fibromyalgia, GERD, hyperlipidemia, thyroid disease, TIA Psychiatric history: anxiety, depression - Past Surgical History Surgical History: appendectomy, hysterectomy - Social History Smoking Status: Never smoker Smokeless Tobacco Status: No Alcohol use: none Drug use: none - Family History Mother History Unknown: Yes Adopted: [place]: Catie Cole Age: 83 Family Member Ethnicity: Non- Living Status: Still Living Hx Family Cardiac Disorders: Yes (CHF, Takotsubo disease) Hx Family Respiratory Disorders: Yes (COPD, Asthma) Hx Family Cancer: Yes (Skin) Hx Family GI Disorders: Yes (GERD) Hx Family Genitourinary Disorders: Yes (Urinary incontinence) Hx Family Endocrine Disorder: No Hx Family Musculoskeletal Disorders: Yes (Osteo arthritis) Hx Family Neuromuscular Disorders: No Hx Family Neurologic Disorders: Yes (TIA) Hx Family HEENT Disorders: No Hx Family Autoimmune Disorders: No Hx Family Reproductive Disorders: No Hx Family Psychosocial Disorders: No Hx Family Medical Disorders: No Father History Unknown: Yes Adopted: [place]: Niall Sena Family Member Ethnicity: Non- Living Status: Age at : 70 Cause of : Metastatic cancer Hx Family Cardiac Disorders: No Hx Family Respiratory Disorders: No Hx Family Cancer: Yes Medications and Allergies Acyclovir [Zovirax] 400 mg PO BID 05/16/16 [History] Atorvastatin Calcium [Lipitor] 20 mg PO DAILY 05/16/16 [History] BuPROPion XL (24 HR) [Wellbutrin Xl] 150 mg PO DAILY 05/16/16 [History] Buspirone HCl [Buspar] 20 mg PO BID 05/16/16 [History] Cholecalciferol (D-3) [Vitamin D] 2,000 unit PO DAILY 05/16/16 [History] Escitalopram [Lexapro] 20 mg PO DAILY 05/16/16 [History] Fentanyl [Duragesic] 25 mcg TD Q72H 05/16/16 [History] Glimepiride [Amaryl] 1 mg PO QAM PRN 05/16/16 [History] Levothyroxine [Synthroid] 50 mcg PO DAILY 05/16/16 [History] Metformin [Glucophage] 500 mg PO BID 05/16/16 [History] Metoprolol XL (24 HR) Succ [Toprol Xl] 25 mg PO DAILY 05/16/16 [History] Mometasone/Formoterol [Dulera 200 Mcg/5 Mcg Inhaler] 2 puff IH BID 05/16/16 [ History] Montelukast [Singulair] 10 mg PO DAILY 05/16/16 [History] Morphine Immed Rel [Morphine Sulfate] 15 mg PO BID PRN 05/16/16 [History] Pantoprazole Sodium [Protonix] 40 mg PO DAILY 05/16/16 [History] Aspirin/Calcium Carbonate/Mag [Aspirin Buffered 325 mg Tab] 325 mg PO DAILY [History] Allergies hydrocodone [From Lortab] Allergy (Verified 05/16/16 10:47) Rash Oxycodone [From Percocet] Allergy (Verified 05/16/16 10:47) Chest Pain povidone-iodine [From Betadine] Allergy (Verified 05/16/16 10:47) Rash soap [From Betadine] Allergy (Verified 05/16/16 10:47) Rash ivp dye Allergy (Uncoded 05/16/16 10:47) Hives Review of Systems All systems PM: A 10-system review of systems was performed and is negative for pertinent findings except as documented above in the HPI. - Constitutional anorexia, weight loss - Cardiovascular no chest pain, no dyspnea - Respiratory no dyspnea, no wheezing - Gastrointestinal abdominal pain, bloating, cramping, dyspepsia, nausea - Neurological no syncope General Surgery Exam Initial Vital Signs Temp Pulse Resp BP Pulse Ox 98.3 F 72 22 102/64 96 08/19/16 14:29 08/19/16 14:29 08/19/16 14:29 08/19/16 14:29 08/19/16 14:29 - General physical appearance well developed, well nourished, moderate distress - Neck trachea midline - Respiratory normal expansion, clear to auscultation - Cardiovascular Cardiovascular exam: Present: RRR - Abdomen Abdomen general surgery: Present: bowel sounds present, soft, tender Abdominal Tenderness: Present: epigastic, RUQ - Neurologic Present: CN 2-12 grossly intact - Psychiatric Psychiatric general surgery: Present: A&Ox3 Exam Initial Vital Signs Temp Pulse Resp BP Pulse Ox 98.3 F 72 22 102/64 96 08/19/16 14:29 08/19/16 14:29 08/19/16 14:29 08/19/16 14:29 08/19/16 14:29 Results - Labs 08/21/16 13:23 08/21/16 13:23 Abnormal lab results Hct 34.8 % (35.3-44.9) L 08/21/16 13:23 PT 12.5 Seconds (9.4-12.1) H 08/20/16 05:28 Est GFR (Non-Af Amer) 54 (> 60) L 08/21/16 13:23 POC Glucose 109 (58-89) H 08/22/16 12:21 Hemoglobin A1c 6.6 % (-5.6) H 08/20/16 05:28 Albumin 3.2 g/dL (3.5-5.0) L 08/21/16 13:23 Triglycerides 209 mg/dL (< 150) H 08/20/16 05:28 Cholesterol 227 mg/dL (< 200) H 08/20/16 05:28 LDL Cholesterol, Calc 139 mg/dL (0-99) H 08/20/16 05:28 VLDL Cholesterol, Calc 42 mg/dL (< 31) H 08/20/16 05:28 Ur Specific [place] 1.027 (1.010-1.025) H 08/19/16 17:45 Urine Bilirubin Small (Negative) H 08/19/16 17:45 All other labs normal. Consult Discharge Plan - Plan Referrals: Traci Daniels MD [Primary Care Provider] - <Efrain Pickard T - Last Filed: 08/23/16 10:22> Date of Encounter: 08/22/16 Review of Systems All systems PM: A 10-system review of systems was performed and is negative for pertinent findings except as documented above in the HPI. General Surgery Exam Initial Vital Signs Temp Pulse Resp BP Pulse Ox 98.3 F 72 22 102/64 96 08/19/16 14:29 08/19/16 14:29 08/19/16 14:29 08/19/16 14:29 08/19/16 14:29 Exam Initial Vital Signs Temp Pulse Resp BP Pulse Ox 98.3 F 72 22 102/64 96 08/19/16 14:29 08/19/16 14:29 08/19/16 14:29 08/19/16 14:29 08/19/16 14:29 Results - Labs 08/23/16 03:03 08/23/16 03:03 Abnormal lab results RBC 3.76 M/mcL (3.82-4.97) L 08/23/16 03:03 Hgb 11.4 g/dL (11.5-15.4) L 08/23/16 03:03 Hct 32.6 % (35.3-44.9) L 08/23/16 03:03 PT 12.5 Seconds (9.4-12.1) H 08/20/16 05:28 BUN 6 mg/dL (7-20) L 08/23/16 03:03 Glucose 101 mg/dL (70-99) H 08/23/16 03:03 POC Glucose 102 (58-89) H 08/23/16 05:50 Hemoglobin A1c 6.6 % (-5.6) H 08/20/16 05:28 Serum Total Protein 5.9 g/dL (6.0-8.3) L 08/23/16 03:03 Albumin 3.1 g/dL (3.5-5.0) L 08/23/16 03:03 Triglycerides 209 mg/dL (< 150) H 08/20/16 05:28 Cholesterol 227 mg/dL (< 200) H 08/20/16 05:28 LDL Cholesterol, Calc 139 mg/dL (0-99) H 08/20/16 05:28 VLDL Cholesterol, Calc 42 mg/dL (< 31) H 08/20/16 05:28 Ur Specific [place] 1.027 (1.010-1.025) H 08/19/16 17:45 Urine Bilirubin Small (Negative) H 08/19/16 17:45 Diabetes panel 08/23/16 Range/Units 03:03 Sodium 142 (136-145) mEq/L Potassium 3.6 (3.5-4.5) mEq/L Chloride 108 (98-109) mEq/L Carbon Dioxide 26 (19-29) mEq/L BUN 6 L (7-20) mg/dL Creatinine 0.91 (0.57-1.11) mg/dL Glucose 101 H (70-99) mg/dL Calcium 9.2 (8.6-10.8) mg/dL AST 28 (5-34) Units/L ALT 25 (0-55) Units/L Alkaline Phosphatase 64 (38-126) Units/L Albumin 3.1 L (3.5-5.0) g/dL Calcium panel 08/23/16 Range/Units 03:03 Calcium 9.2 (8.6-10.8) mg/dL Phosphorus 4.3 (2.3-4.7) mg/dL Albumin 3.1 L (3.5-5.0) g/dL Pituitary panel 08/23/16 Range/Units 03:03 Sodium 142 (136-145) mEq/L Potassium 3.6 (3.5-4.5) mEq/L Chloride 108 (98-109) mEq/L Carbon Dioxide 26 (19-29) mEq/L BUN 6 L (7-20) mg/dL Creatinine 0.91 (0.57-1.11) mg/dL Glucose 101 H (70-99) mg/dL Calcium 9.2 (8.6-10.8) mg/dL Adrenal panel 08/23/16 Range/Units 03:03 Sodium 142 (136-145) mEq/L Potassium 3.6 (3.5-4.5) mEq/L Chloride 108 (98-109) mEq/L Carbon Dioxide 26 (19-29) mEq/L BUN 6 L (7-20) mg/dL Creatinine 0.91 (0.57-1.11) mg/dL Glucose 101 H (70-99) mg/dL Calcium 9.2 (8.6-10.8) mg/dL Total Bilirubin 0.4 (0.2-1.2) mg/dL AST 28 (5-34) Units/L ALT 25 (0-55) Units/L Alkaline Phosphatase 64 (38-126) Units/L Albumin 3.1 L (3.5-5.0) g/dL All other labs normal. - Attending Attestation I examined this patient and my medical decision-making was reviewed with the POSTAL INSPECTOR/PA/Advanced Practice Nurse/Resident Physician. I agree with the documented findings, disposition and treatment plan as described except to the extent set forth below. The patient is seen and evaluated with resident. The patient has evidence of gallstone pancreatitis. I discussed laparoscopic cholecystectomy and cholangiogram as well as the risks and benefits of the operation. She wishes to proceed. We will schedule this tomorrow after she is nothing by mouth. Efrain Pickard MD FACS
[2016-08-23] MEDS: Insulin LISPRO 300 UNITS/3 ML VIAL SQ SCH ×4 (00:06→18:12)
[2016-08-23 03:52] LABS: Basophils % 0.6 %; Eosinophils # 0.2 K/mcL (0.0-0.6); Eosinophils % 3.4 %; Hematocrit 32.6 % (35.3-44.9); Hemoglobin 11.4 g/dL (11.5-15.4); Immature Granulocytes % 0.2 % (0-4); Lymphocytes # 2.1 K/mcL (0.6-4.6); Lymphocytes % 41.4 %; Mean Corpuscular Hemoglobin 30.3 pg (28.0-33.3); Mean Corpuscular Volume 86.7 fL (83.0-100.0); Mean Platelet Volume 10.6 fL (9.4-12.4); Monocytes # 0.6 K/mcL (0.0-1.3); Monocytes % 11.9 %; Neutrophils # 2.1 K/mcL (1.6-8.9); Platelet Count 199 K/mcL (140-400); Red Blood Count 3.76 M/mcL (3.82-4.97); Red Cell Distribution Width 11.7 % (11.5-14.5); Segmented Neutrophils % 42.5 %
[2016-08-23 04:14] LABS: Alanine Aminotransferase 25 Units/L (0-55); Albumin 3.1 g/dL (3.5-5.0); Albumin/Globulin Ratio 1.1 (1.1-2.2); Alkaline Phosphatase 64 Units/L (38-126); Amylase 40 Units/L (25-125); Aspartate Amino Transferase 28 Units/L (5-34); BUN/Creatinine Ratio 7 (6-26); Bilirubin,Direct 0.1 mg/dL (0.0-0.5); Bilirubin,Indirect 0.3 mg/dL (0.0-1.2); Bilirubin,Total 0.4 mg/dL (0.2-1.2); Blood Urea Nitrogen 6 mg/dL (7-20); Calcium 9.2 mg/dL (8.6-10.8); Carbon Dioxide 26 mEq/L (19-29); Chloride 108 mEq/L (98-109); Globulin 2.8 g/dL (2.4-3.5); Glucose 101 mg/dL (70-99); Lipase 43 Units/L (8-78); Osmolality,Calculated 292 (280-300); Phosphorous 4.3 mg/dL (2.3-4.7); Potassium 3.6 mEq/L (3.5-4.5); Sodium 142 mEq/L (136-145); Total Protein 5.9 g/dL (6.0-8.3); eGFR For African Americans > 60 (> 60); eGFR For Non-African Americans > 60 (> 60)
[2016-08-23] MEDS: 0.9 % Sodium Chloride 1,000 ML IVC SCH ×3 (04:33→21:44)
[2016-08-23] MEDS: *HR* Heparin 5,000 UNIT/ML VIAL SQ SCH ×3 (04:49→21:44)
[2016-08-23] MEDS: *HR* FentaNYL PATCH 25 MCG PATCH TD SCH (05:02)
[2016-08-23] MEDS: *HR* HYDROmorphone (PF) 1 MG/ML SYRINGE IVP PRN ×3 (09:17→21:45)
[2016-08-23] MEDS: Pantoprazole 40 MG VIAL IVP SCH (09:17)
[2016-08-23] MEDS: Metoprolol XL (24 HR) Succ 25 MG TAB.ER.24H PO SCH (09:18)
[2016-08-23] MEDS: (Mometasone/Formoterol [Dulera 200 Mcg/5 Mcg Inhaler] IH SCH ×2 (09:18→22:43)
[2016-08-23] MEDS: Ondansetron 4 MG/2 ML VIAL IVP PRN (09:25)
--- NOTE | 2016-08-23 12:51 | Internal Med Progress Note ---
Date of Encounter: 08/23/16 Time of Encounter: 12:47 - Assessment and plan (1) Diabetes Current Visit: No Status: Chronic Assessment and plan: chronic Qualifiers: Diabetes mellitus type: type 2 Diabetes mellitus complication status: with unspecified complications Diabetes mellitus usp insulin use: without usp use Qualified Code(s): E11.8 - Type 2 diabetes mellitus with unspecified complications (2) Hypothyroidism Current Visit: Yes Status: Chronic Assessment and plan: chronic Qualifiers: Hypothyroidism type: acquired Qualified Code(s): E03.9 - Hypothyroidism, unspecified (3) Acute pancreatitis Current Visit: Yes Status: Resolved Assessment and plan: resolving but has more symptoms when diet resumed cholecystectomy planned for today Qualifiers: Pancreatitis type: biliary Acute pancreatitis complication: no infection or necrosis Qualified Code(s): K85.10 - Biliary acute pancreatitis without necrosis or infection (4) Intractable right upper quadrant abdominal pain Current Visit: Yes Status: Acute Assessment and plan: clinically better - Subjective Interval history: patient with history of asthma, diabetes she was admitted with epigastric pain nausea vomiting diagnosis of acute pancreatitis gallblader ultrasound shows gallbladder sludge, . was npo for 3 days . when feeding was resumed developed pain and nausea . surgery consulted and plan on chlestetomy today - Constitutional Vitals: Temp Pulse Resp BP Pulse Ox 97.6 F 56 17 120/63 95 08/23/16 11:07 08/23/16 11:07 08/23/16 11:07 08/23/16 11:07 08/23/16 11:07 General appearance: Present: cooperative, A&O X 3, pleasant, answers questions appropriately - Eye Eye exam: Present: PERRL, conjuntiva pink, sclera anicteric Pupils: Present: PERRL - Neck Neck exam general surgery: Present: supple, trachea midline. Absent: lymphadenopathy - Respiratory Respiratory exam: Present: CTAB. Absent: accessory muscle use, rales, rhonchi, wheezes - Cardiovascular Cardiovascular exam: Present: RRR, +S1, +S2. Absent: diastolic murmur, gallop, rubs, systolic murmur - GI/Abdominal GI/Abdominal exam: Present: soft, tenderness - Extremities Exam Extremities exam: Present: warm, radial pulses palpable and symetrical. Absent : calf tenderness, cyanotic, pedal edema Internal Medicine: Result - Labs CBC & Chem 7: 08/23/16 03:03 08/23/16 03:03 Labs: Short CBC 08/23/16 Range/Units 03:03 WBC 5.0 (4.3-11.1) K/mcL Hgb 11.4 L (11.5-15.4) g/dL Hct 32.6 L (35.3-44.9) % Plt Count 199 (140-400) K/mcL Neutrophils # 2.1 (1.6-8.9) K/mcL BMP 08/23/16 03:03 Sodium 142 Potassium 3.6 Chloride 108 Carbon Dioxide 26 BUN 6 L Creatinine 0.91 Glucose 101 H Calcium 9.2 Liver Function 08/23/16 Range/Units 03:03 Total Bilirubin 0.4 (0.2-1.2) mg/dL Direct Bilirubin 0.1 (0.0-0.5) mg/dL AST 28 (5-34) Units/L ALT 25 (0-55) Units/L Alkaline Phosphatase 64 (38-126) Units/L Albumin 3.1 L (3.5-5.0) g/dL - ABG Interpretation ABG results: PT/INR, D-dimer PT 12.5 Seconds (9.4-12.1) H 08/20/16 05:28 Consult Discharge Plan - Plan Referrals: Traci Daniels MD [Primary Care Provider] -
[2016-08-23] MEDS ORDERED: *HR* Promethazine 25 MG/ML VIAL IVP PRN ×3 (13:22→21:11)
[2016-08-23] MEDS ORDERED: cefOXitin 2,000 MG in D5% in Water (Mini-Bag+) 100 ML IVPB ONE ×2 (13:24→21:11)
--- NOTE | 2016-08-23 13:26 | Event Note ---
Date of Encounter: 08/23/16 Time of Encounter: 13:15 Discussed the risks, benefits, alternatives and expected outcomes with the patient regarding laparoscopic cholecystectomy with cholangiogram today with Dr. Pickard. The patient is in agreement to proceed and consent has been signed. She denies having any questions at this time. Patient is NPO.
--- NOTE | 2016-08-23 17:26 | Anesthesia Evaluation PreOp ---
Date of Encounter: 08/23/16 Time of Encounter: 17:25 - Past History Planned Operation: Lap. Kat. 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) Other Medical History: Diabetes Type II, Thyroid (Hypothyroid), GERD Anesthesia History: No Prior Anesthetic Complications, Past Anesthesia (Appy, ALMA, Cervical fusion C5-7, limited neck extension, Screw) : No Alcohol Use: none Drug use: none Medications and Allergies Acyclovir [Zovirax] 400 mg PO BID 05/16/16 [History] Atorvastatin Calcium [Lipitor] 20 mg PO DAILY 05/16/16 [History] BuPROPion XL (24 HR) [Wellbutrin Xl] 150 mg PO DAILY 05/16/16 [History] Buspirone HCl [Buspar] 20 mg PO BID 05/16/16 [History] Cholecalciferol (D-3) [Vitamin D] 2,000 unit PO DAILY 05/16/16 [History] Escitalopram [Lexapro] 20 mg PO DAILY 05/16/16 [History] Fentanyl [Duragesic] 25 mcg TD Q72H 05/16/16 [History] Glimepiride [Amaryl] 1 mg PO QAM PRN 05/16/16 [History] Levothyroxine [Synthroid] 50 mcg PO DAILY 05/16/16 [History] Metformin [Glucophage] 500 mg PO BID 05/16/16 [History] Metoprolol XL (24 HR) Succ [Toprol Xl] 25 mg PO DAILY 05/16/16 [History] Mometasone/Formoterol [Dulera 200 Mcg/5 Mcg Inhaler] 2 puff IH BID 05/16/16 [ History] Montelukast [Singulair] 10 mg PO DAILY 05/16/16 [History] Morphine Immed Rel [Morphine Sulfate] 15 mg PO BID PRN 05/16/16 [History] Pantoprazole Sodium [Protonix] 40 mg PO DAILY 05/16/16 [History] Aspirin/Calcium Carbonate/Mag [Aspirin Buffered 325 mg Tab] 325 mg PO DAILY [History] Allergies hydrocodone [From Lortab] Allergy (Verified 05/16/16 10:47) Rash Oxycodone [From Percocet] Allergy (Verified 05/16/16 10:47) Chest Pain povidone-iodine [From Betadine] Allergy (Verified 05/16/16 10:47) Rash soap [From Betadine] Allergy (Verified 05/16/16 10:47) Rash ivp dye Allergy (Uncoded 05/16/16 10:47) Hives - Meds/Allergy Pre-op Review Medications Reviewed: Yes Allergies Reviewed: Yes Beta Blockers on Current Med List: Yes If Beta Blockers taken, Date/Time (Last Dose taken): 09:18 08/23/2016 Anesthesia Results - Labs 08/23/16 03:03 08/23/16 03:03 - Imaging EKG: image reviewed (SR) Anesthesia Exam O2 Sat Weight 74 kg O2 Sat by Pulse Oximetry 91 O2 Sat by Pulse Oximetry 95 O2 Sat by Pulse Oximetry 95 O2 Sat by Pulse Oximetry 97 O2 Sat by Pulse Oximetry 93 Vital Signs Temp Pulse Resp BP Pulse Ox 98.3 F 72 22 102/64 96 08/19/16 14:29 08/19/16 14:29 08/19/16 14:29 08/19/16 14:29 08/19/16 14:29 Vital Signs/O2 Sat, Most Current Temp Pulse Resp BP Pulse Ox 98.2 F 62 16 126/76 91 L 08/23/16 15:06 08/23/16 15:06 08/23/16 15:06 08/23/16 15:06 08/23/16 15:06 Height: 5'3'' Weight: 163# NPO (# of Hours): > 8 hrs Pain Scale: 0 Pain Scale Used: Numeric (1 - 10) - HEENT Pupil (Motor): Pupils equal, EOMI Mallampati: III Teeth: Normal Oral Opening: Greater than 3 - CIO LOC: Oriented CIO Motor: Normal RUE, Normal LUE, Normal RLE, Normal LLE, Normal Face CIO Sensory: Normal: RUE, LUE, RLE, LLE, Face - Cardiac Rhythm: Regular Murmur: None JVD: No Carotid Bruit: No - Pulmonary Breath Sounds: bilateral Clear Respiratory Effort: Symmetrical Anesthesia Assess/Plan ASA Score: 3 Modified Florentino Scale for Level of Consciousness: Cooperative, oriented, and tranquil Anesthetic Plan: General Autologous Blood: Yes Recovery Plan: PACU
[2016-08-23] MEDS ORDERED: Lidocaine -MPF 4% 5 ML AMPUL ONE (18:49)
[2016-08-23] MEDS ORDERED: *HR* Midazolam HCl 2 MG/2 ML VIAL ONE (18:51)
[2016-08-23] MEDS ORDERED: *HR* Propofol 200 MG/20 ML VIAL IVP ONE (18:51)
[2016-08-23] MEDS ORDERED: *HR* FentaNYL (PF) 100 MCG/2 ML VIAL ONE (18:51)
[2016-08-23] MEDS ORDERED: Lidocaine -MPF 2% 2 ML VIAL ONE (18:52)
[2016-08-23] MEDS ORDERED: *HR* Succinylcholine 200 MG/10 ML VIAL IVP ONE (18:52)
[2016-08-23] MEDS ORDERED: *HR* Rocuronium Bromide 50 MG/5 ML VIAL ONE (18:53)
[2016-08-23] MEDS ORDERED: CefOXitin 2,000 MG VIAL IVPB ONE (19:02)
[2016-08-23] MEDS ORDERED: *HR* HYDROmorphone (PF) 1 MG/ML SYRINGE IVP PRN (19:38)
[2016-08-23] MEDS ORDERED: Ondansetron 4 MG/2 ML VIAL ONE (19:41)
[2016-08-23] MEDS ORDERED: Dexamethasone 4 MG/ML VIAL ONE (19:41)
[2016-08-23] MEDS ORDERED: *HR* Morphine 10 MG/ML VIAL ONE (19:41)
[2016-08-23] MEDS ORDERED: Neostigmine Methylsulfate 3 MG/3 ML SYRINGE ONE (19:52)
--- NOTE | 2016-08-23 19:58 | Operative Note ---
Date of procedure: 08/23/16 Pre-op diagnosis: Gallstone pancreatitis Post-op diagnosis: same Procedure: Laparoscopic cholecystectomy, cholangiogram Anesthesia: LAURA Surgeon: Efrain Pickard Estimated blood loss (cc): 10 Specimen: Gallbladder and contents Disposition: PACU Procedure in Detail: Laparoscopic cholecystectomy and intraoperative cholangiogram Operative procedure after informed consent and appropriate patient identification timeout the patient's take major operating suite and placed supine position given adequate general endotracheal anesthesia the abdomen is prepped and draped in sterile fashion utilizing ChloraPrep standard draping techniques timeout was taken patient is identified. I made a vertical midline incision below the umbilicus dissected down to level of fascia there are 2 traction stitches placed in the abdominal cavity was entered visually. A Bowers trocar was placed in the abdomen and the abdomen was insufflated to 15 mmHg pressure CO2 the gallbladder was visualized. A placement 11 port in the subxiphoid area and 2 5 mm ports in the subcostal area. The gallbladder was grasped and elevated. A variety of blunt and sharp dissection techniques were used to isolate the cystic duct and cystic artery. The cystic artery was controlled with 2 surgical clips proximally and one distally and it was divided I placed a surgical clip on the neck the gallbladder and obtained an intraoperative cholangiogram using 10 mL of Isovue. Intraoperative cholangiogram was normal. The cholangiocatheter was removed and the cystic duct was controlled with 2 surgical clips proximally and was divided the gallbladder was removed from the gallbladder fossae using electrocautery. The gallbladder was removed through the #11 port site. I replaced the #11 port and irrigated with copious amounts of antibiotic containing solution. There is no evidence of bleeding or bile leak. All trochars were removed. Fascia was closed with 0 Vicryl skin with 2-0 and 4-0 Vicryl She tolerated the procedure well and was transferred to recovery in stable condition
--- NOTE | 2016-08-23 20:53 | Anesthesia Evaluation Post Op ---
Date of Encounter: 08/23/16 Time of Encounter: 20:53 - Vital Signs Vital Signs: vss - Lungs Lungs: Clear Ascult./Percussion - Airway Airway: Non-obstructed - Cardiovascular Baseline Rhythm - Mental Status Mental Status: Asleep with brisk response to light stimulation - Pain Pain Scale used: Charley (Faces) (no apparent distress) - Nausea Vomiting Nausea Vomiting: Not Present - Discharge PostOp Status: Transfer Patient to floor
[2016-08-23] MEDS ORDERED: *HR* Morphine 2 MG/ML SYRINGE IVP PRN (21:11)
[2016-08-23] MEDS ORDERED: Dextrose Gel 15 GM PO PRN ×2 (21:11)
[2016-08-23] MEDS ORDERED: Naloxone 0.4 MG/ML INJ IVP PRN (21:11)
[2016-08-23] MEDS ORDERED: *HR* Dextrose 50 % in Water (Syg) 50 ML SYRINGE IVP PRN (21:11)
[2016-08-23] MEDS ORDERED: D5% in Water 1,000 ML IV PRN (21:11)
[2016-08-23] MEDS ORDERED: Ondansetron 4 MG/2 ML VIAL IVP PRN (21:11)
[2016-08-24] MEDS: traMADol 50 MG TABLET PO PRN ×2 (00:08→06:05)
[2016-08-24] MEDS: Insulin LISPRO 300 UNITS/3 ML VIAL SQ SCH ×4 (00:45→18:10)
[2016-08-24 04:12] LABS: BUN/Creatinine Ratio 7 (6-26); Blood Urea Nitrogen 7 mg/dL (7-20); Calcium 9.4 mg/dL (8.6-10.8); Carbon Dioxide 22 mEq/L (19-29); Chloride 105 mEq/L (98-109); Glucose 154 mg/dL (70-99); Osmolality,Calculated 289 (280-300); Potassium 3.9 mEq/L (3.5-4.5); Sodium 139 mEq/L (136-145); eGFR For African Americans > 60 (> 60); eGFR For Non-African Americans 56 (> 60)
[2016-08-24] MEDS: *HR* HYDROmorphone (PF) 1 MG/ML SYRINGE IVP PRN ×4 (04:16→18:11)
[2016-08-24] MEDS: *HR* Heparin 5,000 UNIT/ML VIAL SQ SCH ×3 (05:57→21:12)
[2016-08-24] MEDS: Pantoprazole 40 MG VIAL IVP SCH (05:57)
[2016-08-24] MEDS: 0.9 % Sodium Chloride 1,000 ML IVC SCH ×3 (05:57→21:29)
[2016-08-24] MEDS: Metoprolol XL (24 HR) Succ 25 MG TAB.ER.24H PO SCH ×2 (08:38→09:10)
--- NOTE | 2016-08-24 08:40 | Internal Med Progress Note ---
Date of Encounter: 08/24/16 Time of Encounter: 08:37 - Assessment and plan (1) Diabetes Current Visit: No Status: Chronic Assessment and plan: chronic Qualifiers: Diabetes mellitus type: type 2 Diabetes mellitus complication status: with unspecified complications Diabetes mellitus halfway insulin use: without halfway use Qualified Code(s): E11.8 - Type 2 diabetes mellitus with unspecified complications (2) Hypothyroidism Current Visit: Yes Status: Chronic Assessment and plan: chronic and no issue Qualifiers: Hypothyroidism type: acquired Qualified Code(s): E03.9 - Hypothyroidism, unspecified (3) Acute pancreatitis Current Visit: Yes Status: Resolved Assessment and plan: pancreatitis resolved will check amylase and lipase s/p lab josé yesterday Qualifiers: Pancreatitis type: biliary Acute pancreatitis complication: no infection or necrosis Qualified Code(s): K85.10 - Biliary acute pancreatitis without necrosis or infection (4) Intractable right upper quadrant abdominal pain Current Visit: Yes Status: Acute Assessment and plan: clinically much better - Subjective Interval history: patient with history of asthma, diabetes she was admitted with epigastric pain nausea vomiting diagnosis of acute pancreatitis gallblader ultrasound shows gallbladder sludge, . was npo for 3 days . when feeding was resumed developed pain and nausea . surgery consulted and plan on chlestetomy today underwent lab cholescystectemy yesterday today feels well some nausea but no vomitting not eating yet - Constitutional Vitals: Temp Pulse Resp BP Pulse Ox 98.2 F 87 15 110/62 94 L 08/24/16 07:57 08/24/16 07:57 08/24/16 07:57 08/24/16 07:57 08/24/16 07:57 General appearance: Present: cooperative, A&O X 3, pleasant, answers questions appropriately - Eye Eye exam: Present: PERRL, conjuntiva pink, sclera anicteric Pupils: Present: PERRL - Neck Neck exam general surgery: Present: supple, trachea midline. Absent: lymphadenopathy - Respiratory Respiratory exam: Present: CTAB. Absent: accessory muscle use, rales, rhonchi, wheezes - Cardiovascular Cardiovascular exam: Present: RRR, +S1, +S2. Absent: diastolic murmur, gallop, rubs, systolic murmur - GI/Abdominal GI/Abdominal exam: Present: soft - Extremities Exam Extremities exam: Present: warm, radial pulses palpable and symetrical. Absent : calf tenderness, cyanotic, pedal edema Internal Medicine: Result - Labs CBC & Chem 7: 08/23/16 03:03 08/24/16 03:15 Labs: BMP 08/24/16 03:15 Sodium 139 Potassium 3.9 Chloride 105 Carbon Dioxide 22 BUN 7 Creatinine 1.00 Glucose 154 H Calcium 9.4 - ABG Interpretation ABG results: PT/INR, D-dimer PT 12.5 Seconds (9.4-12.1) H 08/20/16 05:28 - Impressions Impressions Cholangiogram,Operative 08/23/16 19:40 IMPRESSION: Common duct is demonstrated is patent. No stones are identified D/ / Crescencio Mcmillan MD / Crescencio Mcmillan MD Interpreting Provider: Crescencio Mcmillan MD Consult Discharge Plan - Plan Referrals: Traci Daniels MD [Primary Care Provider] -
[2016-08-24] MEDS: DULERA IH SCH ×2 (08:42→20:29)
[2016-08-24 09:23] LABS: Amylase 37 Units/L (25-125); Lipase 30 Units/L (8-78)
--- NOTE | 2016-08-24 10:11 | General Surgery Progress Note ---
Date of Encounter: 08/24/16 Time of Encounter: 10:08 - Assessment and Plan (1) Pancreatitis Current Visit: Yes Status: Acute S/p lap cholecsytectomy She has had a BM and is tolerating a cardiac low fat diet well. No lekocytosis. Afebrile. OK to be discharged from surgical standpoint. Will need to follow-up with surgery outpatient within 2 weeks. Qualifiers: Chronicity: acute Pancreatitis type: unspecified pancreatitis type Acute pancreatitis complication: unspecified Qualified Code(s): K85.90 - Acute pancreatitis without necrosis or infection, unspecified Subjective Patient reports: feels better, still having pain Narrative: Patient seen and examined. Feels ok this morning. Still having expected post- op incisional pain. She has good bowel sounds. She is tolerating a low fat bland diet well. Denies nausea/vomiting. She had a bm yesterday with fleets enema. Objective Vital Signs - Last 8 Hours Temp Pulse Resp BP Pulse Ox 08/24/16 07:57 98.2 F 87 15 110/62 94 L 08/24/16 03:19 98.0 F 15 115/78 94 L Intake and Output 08/23/16 08/24/16 08/24/16 23:59 07:59 15:59 Intake Total 1000 / 1000 240 / 240 Output Total 505 / 505 Balance -505 / -505 1000 / 1000 240 / 240 Intake: IV Fluids 1000 / 1000 0.9 % Sodium Chloride 1, 1000 / 1000 000 ML @ 125 mls/hr IVC . Q8H KWAKU Rx#:[id number] Oral 240 / 240 Output: Urine 500 / 500 Estimated Blood Loss 5 / 5 Other: Meal Breakfast Percent of Meal Consumed 75% # Voids 3 Weight 76 kg Blood Glucose* 150 168 Patient Weight 08/24/16 23:59 Weight 76 kg - General physical appearance well developed, well nourished - Eyes normal ocular movement - Neck Neck exam: trachea midline - Respiratory normal expansion, clear to auscultation - Cardiovascular Cardiovascular exam: Present: RRR, no murmurs/rubs/gallops - Abdomen Abdomen: Present: bowel sounds present, soft, tender (expected post-op incisional tenderness) - Neurologic CN 2-12 grossly intact - Psychiatric oriented to time, oriented to person, oriented to place - Labs 08/25/16 04:15 08/25/16 04:15 Diabetes panel 08/24/16 Range/Units 03:15 Sodium 139 (136-145) mEq/L Potassium 3.9 (3.5-4.5) mEq/L Chloride 105 (98-109) mEq/L Carbon Dioxide 22 (19-29) mEq/L BUN 7 (7-20) mg/dL Creatinine 1.00 (0.57-1.11) mg/dL Glucose 154 H (70-99) mg/dL Calcium 9.4 (8.6-10.8) mg/dL Calcium panel 08/24/16 Range/Units 03:15 Calcium 9.4 (8.6-10.8) mg/dL Pituitary panel 08/24/16 Range/Units 03:15 Sodium 139 (136-145) mEq/L Potassium 3.9 (3.5-4.5) mEq/L Chloride 105 (98-109) mEq/L Carbon Dioxide 22 (19-29) mEq/L BUN 7 (7-20) mg/dL Creatinine 1.00 (0.57-1.11) mg/dL Glucose 154 H (70-99) mg/dL Calcium 9.4 (8.6-10.8) mg/dL Adrenal panel 08/24/16 Range/Units 03:15 Sodium 139 (136-145) mEq/L Potassium 3.9 (3.5-4.5) mEq/L Chloride 105 (98-109) mEq/L Carbon Dioxide 22 (19-29) mEq/L BUN 7 (7-20) mg/dL Creatinine 1.00 (0.57-1.11) mg/dL Glucose 154 H (70-99) mg/dL Calcium 9.4 (8.6-10.8) mg/dL Consult Discharge Plan - Plan Referrals: Traci Daniels MD [Primary Care Provider] - - Attending Attestation I examined this patient and my medical decision-making was reviewed with the CLINICAL PHARMACY MANAGER/PA/Advanced Practice Nurse/Resident Physician. I agree with the documented findings, disposition and treatment plan as described except to the extent set forth below. Agree with the physical examination assessment performed with the transplant immunologist mentioned above. Incisions are clean, dry, and intact. From a surgical standpoint patient is okay to be discharged home with surgical follow-up in approximately 2 weeks.
[2016-08-25] MEDS: *HR* HYDROmorphone (PF) 1 MG/ML SYRINGE IVP PRN ×3 (00:06→12:54)
[2016-08-25] MEDS: Insulin LISPRO 300 UNITS/3 ML VIAL SQ SCH ×3 (00:22→12:22)
[2016-08-25 04:50] LABS: Hematocrit 31.4 % (35.3-44.9); Hemoglobin 10.5 g/dL (11.5-15.4); Mean Corpuscular HGB Conc 33.4 g/dL (31.6-35.5); Mean Corpuscular Hemoglobin 29.2 pg (28.0-33.3); Mean Corpuscular Volume 87.5 fL (83.0-100.0); Mean Platelet Volume 10.7 fL (9.4-12.4); Platelet Count 211 K/mcL (140-400); Red Blood Count 3.59 M/mcL (3.82-4.97); Red Cell Distribution Width 11.9 % (11.5-14.5)
[2016-08-25 05:03] LABS: BUN/Creatinine Ratio 9 (6-26); Blood Urea Nitrogen 8 mg/dL (7-20); Calcium 8.5 mg/dL (8.6-10.8); Carbon Dioxide 25 mEq/L (19-29); Chloride 110 mEq/L (98-109); Glucose 123 mg/dL (70-99); Osmolality,Calculated 298 (280-300); Potassium 3.4 mEq/L (3.5-4.5); Sodium 144 mEq/L (136-145); eGFR For African Americans > 60 (> 60); eGFR For Non-African Americans > 60 (> 60)
[2016-08-25] MEDS: 0.9 % Sodium Chloride 1,000 ML IVC SCH ×2 (06:18→12:23)
[2016-08-25] MEDS: Pantoprazole 40 MG VIAL IVP SCH (06:19)
[2016-08-25] MEDS: *HR* Heparin 5,000 UNIT/ML VIAL SQ SCH ×2 (06:19→14:50)
[2016-08-25] MEDS: DULERA IH SCH (07:20)
[2016-08-25] MEDS: Metoprolol XL (24 HR) Succ 25 MG TAB.ER.24H PO SCH (08:06)
--- NOTE | 2016-08-25 15:59 | Discharge Summary ---
Date of Encounter: 08/25/16 Time of Encounter: 15:55 - Discharge Diagnosis (1) Diabetes Priority: Secondary Status: Chronic Comments: chronic Qualifiers: Diabetes mellitus type: type 2 Diabetes mellitus complication status: with unspecified complications Diabetes mellitus termite control technician insulin use: without termite control technician use Qualified Code(s): E11.8 - Type 2 diabetes mellitus with unspecified complications (2) Hypothyroidism Priority: Secondary Status: Chronic Comments: chronic Qualifiers: Hypothyroidism type: acquired Qualified Code(s): E03.9 - Hypothyroidism, unspecified (3) Acute pancreatitis Priority: Primary Status: Resolved Comments: resolved Qualifiers: Pancreatitis type: biliary Acute pancreatitis complication: no infection or necrosis Qualified Code(s): K85.10 - Biliary acute pancreatitis without necrosis or infection (4) Intractable right upper quadrant abdominal pain Priority: Secondary Status: Acute Comments: s/p cholecystectomy - Discharge Medications Home Medications: Acyclovir [Zovirax] 400 mg PO BID 05/16/16 [History] Atorvastatin Calcium [Lipitor] 20 mg PO DAILY 05/16/16 [History] BuPROPion XL (24 HR) [Wellbutrin Xl] 150 mg PO DAILY 05/16/16 [History] Buspirone HCl [Buspar] 20 mg PO BID 05/16/16 [History] Cholecalciferol (D-3) [Vitamin D] 2,000 unit PO DAILY 05/16/16 [History] Escitalopram [Lexapro] 20 mg PO DAILY 05/16/16 [History] Fentanyl [Duragesic] 25 mcg TD Q72H 05/16/16 [History] Glimepiride [Amaryl] 1 mg PO QAM PRN 05/16/16 [History] Levothyroxine [Synthroid] 50 mcg PO DAILY 05/16/16 [History] Metformin [Glucophage] 500 mg PO BID 05/16/16 [History] Metoprolol XL (24 HR) Succ [Toprol Xl] 25 mg PO DAILY 05/16/16 [History] Mometasone/Formoterol [Dulera 200 Mcg/5 Mcg Inhaler] 2 puff IH BID 05/16/16 [ History] Montelukast [Singulair] 10 mg PO DAILY 05/16/16 [History] Morphine Immed Rel [Morphine Sulfate] 15 mg PO BID PRN 05/16/16 [History] Pantoprazole Sodium [Protonix] 40 mg PO DAILY 05/16/16 [History] Aspirin/Calcium Carbonate/Mag [Aspirin Buffered 325 mg Tab] 325 mg PO DAILY [History] Allergies/Adverse Reactions: Allergies hydrocodone [From Lortab] Allergy (Verified 05/16/16 10:47) Rash Oxycodone [From Percocet] Allergy (Verified 05/16/16 10:47) Chest Pain povidone-iodine [From Betadine] Allergy (Verified 05/16/16 10:47) Rash soap [From Betadine] Allergy (Verified 05/16/16 10:47) Rash ivp dye Allergy (Uncoded 05/16/16 10:47) Hives Date of admission: 08/20/16 05:14 Primary care physician: Traci Daniels Consults: 08/20/16 15:26 Consult to Imaging Services Director [CONS] Routine Reason for SW Consult: Set up POA Discharging clinician: Michele Garcia Anticipated date of discharge: 08/25/16 - Patient Status Disposition: Home, Self-Care Condition: Good Overall status at discharge: patient is back to baseline - Discharge Instructions - Diet and Activity Activity: increase activity as tolerated Diet: advance to your usual diet Hospital course: Ms. Myrick is a 61 year old female - Time Spent with Patient Total time spent providing and/or coordinating discharge services: - Constitutional Vitals: Temp Pulse Resp BP Pulse Ox 99.0 F 74 17 118/66 96 08/25/16 10:21 08/25/16 10:21 08/25/16 10:21 08/25/16 10:21 08/25/16 10:21 General appearance: Present: cooperative, A&O X 3, pleasant, answers questions appropriately
[2016-08-25 16:27] VITALS: BP 126/80
[2016-08-26] MEDS ORDERED: *HR* FentaNYL PATCH 25 MCG PATCH TD SCH (05:15)
== END 2016-08-25 17:48 | disposition home or self-care (01) | DRG 419 ==
LOC: EMEROO 13:40 → 3BNU 13:40
PROVIDERS: ADMIT Pediatrics; ATTEND Internal Medicine Cardiovascular Disease